=== PATIENT | male | born 1985 | race Caucasian/White ===

== ENCOUNTER 2017-04-04 09:49 | Emergency (ER) | payer SELFPAY ==
[2017-04-04 10:05] VITALS: BP 161/88
--- NOTE | 2017-04-04 10:05 | PHYS DOC ---
Adult General Chief Complaint Chief Complaint: SHOULDER INJURY HPI HPI Patient is a 31 year old male presents to the ED complaining of shoulder injury 3 hours. Patient states he was driving his car and shifting gears in the car and felt a pop in his right shoulder. Describes the pain as sharp. Rates the pain as 7 out of 10. Denies trauma, chest pain, shortness of breath, dizziness, weakness, fever or swelling. Review of Systems Review of Systems Constitutional: Denies fever or chills [] Eyes: Denies change in visual acuity, redness, or eye pain [] HENT: Denies nasal congestion or sore throat [] Respiratory: Denies cough or shortness of breath [] Cardiovascular: No additional information not addressed in HPI [] GI: Denies abdominal pain, nausea, vomiting, bloody stools or diarrhea [] : Denies dysuria or hematuria [] Musculoskeletal: Denies back pain. Right shoulder pain. [] Integument: Denies rash or skin lesions [] Neurologic: Denies headache, focal weakness or sensory changes [] Endocrine: Denies polyuria or polydipsia [] Current Medications Current Medications Current Medications Medications (Trade) Dose Ordered Sig/Víctor Start Time Stop Time Status Last Admin Dose Admin Acetaminophen/ Codeine Phosphate (Tylenol #3) 1 tab 1X ONCE 04/04/17 10:45 04/04/17 10:46 DC 04/04/17 10:41 1 TAB Ibuprofen (Motrin) 800 mg 1X ONCE 04/04/17 10:15 04/04/17 10:16 UNV Allergies Allergies Allergies Coded Allergies Type Severity Reaction Last Updated Verified NSAIDS (Non-Steroidal Anti-Inflamma Allergy Severe tongue swelling 04/04/17 Yes shellfish derived Allergy Severe SWELLING OF TONGUE 04/04/17 Yes esomeprazole Allergy Intermediate hives 04/04/17 Yes tamsulosin Allergy Intermediate hives 04/04/17 Yes Physical Exam Physical Exam Constitutional: Well developed, well nourished, no acute distress, non-toxic appearance. [] HENT: Normocephalic, atraumatic, bilateral external ears normal, oropharynx moist, no oral exudates, nose normal. [] Eyes: PERRLA, EOMI, conjunctiva normal, no discharge. [] Neck: Normal range of motion, no tenderness, supple, no stridor. [] Cardiovascular:Heart rate regular rhythm, no murmur [] Lungs & Thorax: Bilateral breath sounds clear to auscultation [] Abdomen: Bowel sounds normal, soft, no tenderness, no masses, no pulsatile masses. [] Skin: Warm, dry, no erythema, no rash. [] Back: No tenderness, no CVA tenderness. [] Extremities: MILD RIGHT ANTERIOR SHOULDER TENDERNESS, no cyanosis, no clubbing, ROM intact, no edema. [] Neurologic: Alert and oriented X 3, normal motor function, normal sensory function, no focal deficits noted. [] Psychologic: Affect normal, judgement normal, mood normal. [] Current Patient Data Vital Signs Vital Signs Date Time Temp Pulse Resp B/P (MAP) Pulse Ox O2 Delivery O2 Flow Rate FiO2 04/04/17 10:05 97.5 101 18 97 Room Air 97.5 EKG EKG [] Radiology/Procedures Radiology/Procedures []PROCEDURE: SHOULDER 2+V RIGHT Right shoulder, 3 views, 04/04/2017: History: Shoulder injury No fracture or dislocation is identified. No significant arthritic change is evident. The periarticular soft tissues are unremarkable. IMPRESSION: No significant right shoulder abnormality is detected. Course & Med Decision Making Course & Med Decision Making Pertinent Labs and Imaging studies reviewed. (See chart for details) []X-ray negative for acute injury. Patient's pain improved. Patient placed in sling. Neurovascular intact postplacement. Discussed follow-up with orthopedics this week. Provided contact information/education. Discussed reasons to return to the ED. Patient understands and agrees with plan. Dragon Disclaimer Dragon Disclaimer This electronic medical record was generated, in whole or in part, using a voice recognition dictation system. Departure Departure Impression: Primary Impression: Shoulder injury Disposition: 01 HOME, SELF-CARE Condition: STABLE Patient Instructions: Shoulder Pain Scripts Tramadol Hcl (TRAMADOL HCL) 50 Mg Tablet 1 TAB PO TID, #10 TAB Prov: GUCCI LOCK 04/04/17 GUCCI LOCK Apr 04, 2017 10:05
[2017-04-04] MEDS ORDERED: IBUPROFEN 800 MG TABLET. PO ONE (10:15)
[2017-04-04] MEDS: ACETAMINOPHEN/CODEINE 300/30MG TABLET. PO ONE (10:41)
--- NOTE | 2017-04-04 10:41 | RAD ---
Right shoulder, 3 views, 04/04/2017: History: Shoulder injury No fracture or dislocation is identified. No significant arthritic change is evident. The periarticular soft tissues are unremarkable. IMPRESSION: No significant right shoulder abnormality is detected.
[2017-04-04] MEDS ORDERED: TRAM50TA PO (10:54)
== END 2017-04-04 10:56 | disposition home or self-care (01) ==
LOC: ER 09:49
DX: S49.91XA Unspecified injury of right shoulder and upper arm, initial encounter (principal); Z88.6 Allergy status to analgesic agent; Z88.8 Allergy status to other drugs, medicaments and biological substances; Z91.013 Allergy to seafood; X50.9XXA Other and unspecified overexertion or strenuous movements or postures, initial encounter; Y93.89 Activity, other specified; Y99.8 Other external cause status; Y92.89 Other specified places as the place of occurrence of the external cause
CPT/HCPCS: 73030; 99284